=== PATIENT | male | born 1940 | race Hispanic/Latino ===

== ENCOUNTER 2021-12-10 18:02 | Observation (INO) | payer MEDICARE, OTHER ==
--- NOTE | 2021-12-10 18:43 | Emergency Department Report ---
ED General Adult HPI - General Chief complaint: Fall Stated complaint: CUT ON HEAD Time Seen by Provider: 12/10/21 18:42 Source: patient, family Mode of arrival: Ambulatory Limitations: No Limitations - History of Present Illness Initial comments: Patient presents with complaints of an episode of loss of consciousness that was witnessed. No witnesses present to give any collateral history. States he was walking in his living room when all of a sudden he found himself waking up from the ground. Denies bowel/urinary incontinence, tongue or lip biting. Also denies any dizziness, numbness, weakness, COLEMAN, CP, SOB, palpitations before or after the episode. Also denies any vomiting, diarrhea, hematochezia, bloody or black tarry stools, vaginal bleeding. Complaining of a cut to his R head. Severity scale (0 -10): 2 - Related Data Allergies Allergy/AdvReac Type Severity Reaction Status Date / Time No Known Allergies Allergy Verified 12/10/21 22:12 ED Review of Systems ROS: Stated complaint: CUT ON HEAD Other details as noted in HPI Comment: All other systems reviewed and negative Constitutional: denies: chills, fever ED Physical Exam - General Limitations: No Limitations General appearance: alert, in no apparent distress - Head Head exam: Present: normocephalic, other (subcutaneous hematoma with abrasion in R parietal scalp) - Eye Eye exam: Present: PERRL, EOMI - ENT ENT exam: Present: mucous membranes moist, other (airway patent) - Neck Neck exam: Present: other (painless full ROM; non tender; unable to clear with NEXUS criteria 2/2 possible distracting injury) - Respiratory Respiratory exam: Present: other (good air ent) - Cardiovascular Cardiovascular Exam: Present: regular rate. Absent: rubs, gallop - GI/Abdominal GI/Abdominal exam: Present: soft. Absent: distended, tenderness, guarding, rebound - Extremities Exam Extremities exam: Present: other (painless full ROM in all extremities without defomrity, edema, ecchymosis or tenderness; pelvis stable and non tender) - Back Exam Back exam: Present: other (no step offs). Absent: paraspinal tenderness, vertebral tenderness - Neurological Exam Neurological exam: Present: oriented X3, CN II-XII intact, other (GCS 15/15 ([id number])). Absent: motor sensory deficit - Skin Skin exam: Present: other (see head) ED Course Vital Signs 12/10/21 12/10/21 12/10/21 18:17 22:00 23:20 Temperature 97.8 F 97.9 F Pulse Rate 75 76 80 Respiratory 18 15 Rate Blood Pressure Blood Pressure 145/71 139/81 [Right] O2 Sat by Pulse 97 95 Oximetry 12/11/21 00:54 Temperature 97.8 F Pulse Rate 73 Respiratory 16 Rate Blood Pressure 125/84 Blood Pressure [Right] O2 Sat by Pulse 96 Oximetry ED Medical Decision Making - Lab Data Result diagrams: 12/10/21 22:23 12/10/21 22:23 Laboratory Tests 12/10/21 12/10/21 12/10/21 19:48 19:58 19:58 WBC 5.8 RBC 5.06 H Hgb 15.9 H Hct 46.1 H MCV 91 MCH 32 MCHC 35 H RDW 13.7 Plt Count 178 Sodium 139 Potassium 4.2 Chloride 102.4 Carbon Dioxide 23 Anion Gap 18 BUN 18 Creatinine 1.1 Estimated GFR > 60 BUN/Creatinine Ratio 16 Glucose 136 H Calcium 9.7 Total Bilirubin 0.30 AST 16 ALT 11 Alkaline Phosphatase 74 Troponin T < 0.010 Total Protein 6.8 Albumin 4.0 Albumin/Globulin Ratio 1.4 Urine Color Straw Urine Turbidity Clear Urine pH 5.0 Ur Specific [place] 1.005 Urine Protein <15 mg/dl Urine Glucose (UA) Neg Urine Ketones Neg Urine Blood Sm Urine Nitrite Neg Urine Bilirubin Neg Urine Urobilinogen < 2.0 Ur Leukocyte Esterase Neg Urine WBC (Auto) < 1.0 Urine RBC (Auto) 0.0 EKG: HR 66, SR, borderline PA, narrow QRS, no significant ST changes in contiguous leads CT head: no acute intracranial abnormalities CT C-spine: no fracture or subluxation CXR: no acute cardiopulmonary process Critical care attestation.: If time is entered above; I have spent that time in minutes in the direct care of this critically ill patient, excluding procedure time. ED Disposition Clinical Impression: Syncope, Scalp abrasion Disposition: ADMITTED INPATIENT Is pt being admited?: Yes Condition: Stable Time of Disposition: 21:00 (Patient was admitted to Dr. Snow. Sign out was given by me to the admitting physician)
[2021-12-10] MEDS ORDERED: TETANUS,DIPH,PERTUSS(ACELL) VACCINE 0.5 ML SYRINGE IM ONE (18:45)
--- NOTE | 2021-12-10 19:14 | XRay Report ---
CHEST 1 VIEW INDICATION: syncope. COMPARISON: Chest x-ray from 07/25/2012 FINDINGS: SUPPORT DEVICES: None. HEART: Within normal limits. LUNGS/PLEURA: No acute air space or interstitial disease. ADDITIONAL FINDINGS: None. IMPRESSION: 1. No acute findings. Signer Name: Isaiah Natarajan MD Signed: 12/10/2021 7:10 PM Workstation Name: [id number]
[2021-12-10 20:09] LABS: Bilirubin,Urine NEG (Negative); Blood,Urine SM (Negative); Color,Urine Straw (Yellow); Protein,Urine <15 mg/dL mg/dL (Negative); Urobilinogen,Urine < 2.0 mg/dL (<2.0); WBC,Urine < 1.0 /HPF (0.0-6.0)
--- NOTE | 2021-12-10 20:35 | Cat Scan Report ---
CT head/brain wo con INDICATION / CLINICAL INFORMATION: 81 years Male; blunt head trauma. TECHNIQUE: Routine CT head without contrast. All CT scans at this location are performed using CT dos e reduction for ALARA by means of automated exposure control. COMPARISON: None. FINDINGS: BRAIN / INTRACRANIAL CONTENTS: The motion degrades the image quality. However, there is moderate cere bral white matter disease most consistent with microvascular angiopathy. There is mild cerebral atrop hy with associated prominence of the ventricular system. There is small hematoma involving the lateral right frontal scalp. However, there is no clear CT evid ence of acute intracranial hemorrhage. ORBITS: No significant abnormality of visualized orbits. SINUSES / MASTOIDS: No significant abnormality in the visualized paranasal sinuses or mastoid air chago ls. CRANIOCERVICAL JUNCTION: No significant abnormality. ADDITIONAL FINDINGS: None. IMPRESSION: 1. The study some to by motion. However, there is a hematoma involving right lateral frontal scalp wi thout clear CT evidence of acute intracranial hemorrhage. 2. 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 Signer Name: Erik Mabry MD Signed: 12/10/2021 8:31 PM Workstation Name: [id number]
[2021-12-10 20:39] LABS: Hematocrit 46.1 % (35.5-45.6); Hemoglobin 15.9 gm/dl (11.8-15.2); Mean Corpuscular HGB Conc 35 % (32-34); Mean Corpuscular Volume 91 fl (84-94); Platelet Count 178 K/mm3 (140-440); Red Blood Count 5.06 M/mm3 (3.65-5.03); Red Cell Distribution Width 13.7 % (13.2-15.2)
--- NOTE | 2021-12-10 20:40 | Cat Scan Report ---
CT cervical spine wo con INDICATION / CLINICAL INFORMATION: 81 years Male; blunt head trauma. TECHNIQUE: Axial CT images of the cervical spine were obtained. Sagittal and coronal reformatted images were pr oduced. All CT scans at this location are performed using CT dose reduction for ALARA by means of aut omated exposure control. COMPARISON: None available. FINDINGS: POST-SURGICAL CHANGES: None. ALIGNMENT: There is mild reversal of the cervical lordosis without significant spondylolisthesis. VERTEBRAE: There is mild disc space narrowing and degenerative endplate changes at C5-6 and C6-7 and anteriorly at C3-4. There is no clear CT evidence of acute fracture of the cervical spine. There is a lucent lesion along the posterior C4 vertebral body measuring 0.6 cm in greatest transvers e dimension at. There is a finding is nonspecific and is noted posteriorly along the region of the ve nous plexus and is likely incidental finding. No further lytic lesions are appreciated at. INTRAVERTEBRAL DISCS: The left facet and uncovertebral joint hypertrophy at C3-4 result in marked lef t foraminal narrowing at. The spondylosis at C4-5 effaces the right lateral recess with moderate righ t foraminal narrowing. The spondylosis at C5-6 effaces the ventral subarachnoid space with moderate to marked left and moder ate right foraminal narrowing. The spondylosis C6-7 appears to mildly encroach on the ventral cord. There is marked foraminal narrow ing bilaterally. There is mild left foraminal narrowing at C7-T1. PARASPINAL SOFT TISSUES: No prevertebral soft tissue fluid collections are identified. ADDITIONAL FINDINGS: None. IMPRESSION: 1. There is no clear CT evidence of acute fracture involving cervical spine. 2. There are multilevel degenerative the changes as detailed above. Signer Name: Erik Mabry MD Signed: 12/10/2021 8:35 PM Workstation Name: [id number]
[2021-12-10 20:53] LABS: Alanine Aminotransferase 11 units/L (7-56); BUN/Creatinine Ratio 16; Blood Urea Nitrogen 18 mg/dL (9-20); Calcium 9.7 mg/dL (8.4-10.2); Hemolysis Index 13
[2021-12-10] MEDS ORDERED: ACETAMINOPHEN 325 MG TAB PO PRN (22:06)
[2021-12-10] MEDS ORDERED: NITROGLYCERIN 0.4 MG TAB SUBL SL PRN (22:06)
[2021-12-10] MEDS ORDERED: MORPHINE 4 MG/1 ML INJ IV PRN (22:06)
[2021-12-10] MEDS ORDERED: traMADol 50 MG TAB PO PRN (22:06)
--- NOTE | 2021-12-10 22:13 | History and Physical Report ---
History of Present Illness Date of examination: 12/10/21 Date of admission: 12/10/21 Chief complaint: Fall Syncope History of present illness: 81 years old male with history of hypertension was brought to the hospital because of an episode of loss of consciousness . No witnesses present to give any collateral history. States he was walking in his living room when all of a sudden he found himself waking up from the ground. Denies bowel/urinary incontinence, tongue or lip biting. Also denies any dizziness, numbness, weakness, COLEMAN, CP, SOB, palpitations before or after the episode. Also denies any vomiting, diarrhea, hematochezia, bloody or black tarry stools, vaginal bleeding. Complaining of a cut to his Rt side head which was sutured by the ER physician. In the emergency room initial CT scan of the head shows no acute intracranial abnormality. Initial troponin is 0.010.'s were going to admit the patient we will put the patient on IV fluid will consult cardiology for evaluation we will do serial enzymes and echocardiogram Past History Past Medical History: hypertension Past Surgical History: No surgical history Social history: no significant social history Family history: no significant family history Medications and Allergies Allergies Allergy/AdvReac Type Severity Reaction Status Date / Time No Known Allergies Allergy Unverified 12/10/21 18:13 Active Meds: Active Medications Acetaminophen (Acetaminophen 325 Mg Tab) 650 mg PO Q6H PRN PRN Reason: Pain, Mild (1-3) Aspirin (Aspirin Ec 325 Mg Tab) 325 mg PO QDAY CITLALY Atorvastatin Calcium (Atorvastatin 40 Mg Tab) 40 mg PO QHS [facility] Sodium Chloride (Nacl 0.9% 1000 Ml) 1,000 mls @ 100 mls/hr IV DIRECT CITLALY Morphine Sulfate (Morphine 4 Mg/1 Ml Inj) 2 mg IV Q5MIN PRN PRN Reason: Chest Pain unrelieved by NTG Nitroglycerin (Nitroglycerin 0.4 Mg Tab Subl) 0.4 mg SL Q5M PRN PRN Reason: Chest Pain Pantoprazole Sodium (Pantoprazole 40 Mg Tab) 40 mg PO QDAY CITLALY Sodium Chloride (Sodium Chloride 0.9% 10 Ml Flush Syringe) 10 ml IV PRN PRN PRN Reason: LINE FLUSH Tramadol HCl (Tramadol 50 Mg Tab) 50 mg PO Q6H PRN PRN Reason: Pain, Moderate (4-6) Review of Systems All systems: negative Constitutional: other (Fall, syncope, unconsciousness, caught on the head on the right side) Cardiovascular: syncope Exam - Constitutional Vitals: Temp Pulse Resp BP Pulse Ox 97.8 F 75 18 145/71 97 12/10/21 18:17 12/10/21 18:17 12/10/21 18:17 12/10/21 18:17 12/10/21 18:17 General appearance: Present: no acute distress, well-nourished - EENT Eyes: Present: PERRL ENT: hearing intact, clear oral mucosa - Neck Neck: Present: supple, normal ROM - Respiratory Respiratory effort: normal Respiratory: bilateral: diminished - Cardiovascular Heart Sounds: Present: S1 & S2. Absent: rub, click - Extremities Extremities: pulses symmetrical, No edema Peripheral Pulses: within normal limits - Abdominal General gastrointestinal: Present: soft, non-tender, non-distended, normal bowel sounds Male genitourinary: Present: normal - Integumentary Integumentary: Present: clear, warm, dry - Musculoskeletal Musculoskeletal: gait normal, strength equal bilaterally - Psychiatric Psychiatric: appropriate mood/affect, intact judgment & insight - Neurologic Neurologic: CNII-XII intact, moves all extremities HEART Score - HEART Score Troponin: Troponin T < 0.010 ng/mL (0.00-0.029) 12/10/21 19:58 Results - Labs CBC & Chem 7: 12/10/21 19:58 12/10/21 19:58 Labs: Laboratory Last Values WBC 5.8 K/mm3 (4.5-11.0) 12/10/21 19:58 RBC 5.06 M/mm3 (3.65-5.03) H 12/10/21 19:58 Hgb 15.9 gm/dl (11.8-15.2) H 12/10/21 19:58 Hct 46.1 % (35.5-45.6) H 12/10/21 19:58 MCV 91 fl (84-94) 12/10/21 19:58 MCH 32 pg (28-32) 12/10/21 19:58 MCHC 35 % (32-34) H 12/10/21 19:58 RDW 13.7 % (13.2-15.2) 12/10/21 19:58 Plt Count 178 K/mm3 (140-440) 12/10/21 19:58 Sodium 139 mmol/L (137-145) 12/10/21 19:58 Potassium 4.2 mmol/L (3.6-5.0) 12/10/21 19:58 Chloride 102.4 mmol/L (98-107) 12/10/21 19:58 Carbon Dioxide 23 mmol/L (22-30) 12/10/21 19:58 Anion Gap 18 mmol/L 12/10/21 19:58 BUN 18 mg/dL (9-20) 12/10/21 19:58 Creatinine 1.1 mg/dL (0.8-1.3) 12/10/21 19:58 Estimated GFR > 60 ml/min 12/10/21 19:58 BUN/Creatinine Ratio 16 % 12/10/21 19:58 Glucose 136 mg/dL (75-100) H 12/10/21 19:58 Calcium 9.7 mg/dL (8.4-10.2) 12/10/21 19:58 Total Bilirubin 0.30 mg/dL (0.1-1.2) 12/10/21 19:58 AST 16 units/L (5-40) 12/10/21 19:58 ALT 11 units/L (7-56) 12/10/21 19:58 Alkaline Phosphatase 74 units/L (35-129) 12/10/21 19:58 Troponin T < 0.010 ng/mL (0.00-0.029) 12/10/21 19:58 Total Protein 6.8 g/dL (6.3-8.2) 12/10/21 19:58 Albumin 4.0 g/dL (3.9-5) 12/10/21 19:58 Albumin/Globulin Ratio 1.4 % 12/10/21 19:58 Urine Color Straw (Yellow) 12/10/21 19:48 Urine Turbidity Clear (Clear) 12/10/21 19:48 Urine pH 5.0 (5.0-7.0) 12/10/21 19:48 Ur Specific [place] 1.005 (1.003-1.030) 12/10/21 19:48 Urine Protein <15 mg/dl mg/dL (Negative) 12/10/21 19:48 Urine Glucose (UA) Neg mg/dL (Negative) 12/10/21 19:48 Urine Ketones Neg mg/dL (Negative) 12/10/21 19:48 Urine Blood Sm (Negative) 12/10/21 19:48 Urine Nitrite Neg (Negative) 12/10/21 19:48 Urine Bilirubin Neg (Negative) 12/10/21 19:48 Urine Urobilinogen < 2.0 mg/dL (<2.0) 12/10/21 19:48 Ur Leukocyte Esterase Neg (Negative) 12/10/21 19:48 Urine WBC (Auto) < 1.0 /HPF (0.0-6.0) 12/10/21 19:48 Urine RBC (Auto) 0.0 /HPF (0.0-6.0) 12/10/21 19:48 - Imaging and Cardiology Chest x-ray: report reviewed CT Scan - head: report reviewed Assessment and Plan VTE prophylaxis?: Mechanical Plan of care discussed with patient/family: Yes - Patient Problems (1) Syncope Current Visit: Yes Status: Acute Plan to address problem: Admit the patient to the medical telemetry. Cardiac diet. IV fluid normal saline at the rate of 100 cc/h. Aspirin 325 mg p.o. daily. Lipitor 40 mg p.o. daily. Due to the serial cardiac enzymes. Patient is on fall precaution. Echocardiogram. Cardiology evaluation (2) Hypertension Current Visit: Yes Status: Acute Plan to address problem: Hydralazine 10 mg IV every 6 hours as needed. We will continue the home medication (3) Fall Current Visit: Yes Status: Acute Plan to address problem: Patient is on fall precaution. Will consult physical therapy evaluation (4) Laceration of head Current Visit: Yes Status: Acute Plan to address problem: Laceration is sutured by the ER physician. We cleaned the dressing. We will monitor the patient closely (5) DVT prophylaxis Current Visit: Yes Status: Acute Plan to address problem: SCD for DVT prophylaxis. Protonix 40 mg p.o. daily for GI prophylaxis. Patient is a full code
[2021-12-10] MEDS ORDERED: hydrALAZINE 20 MG/1 ML INJ IV PRN (22:14)
[2021-12-10] MEDS ORDERED: SODIUM CHLORIDE 0.9% 1000 ML 1,000 ML IV SCH (22:15)
[2021-12-10 23:15] LABS: Basophils % (Auto) 0.6 % (0.0-1.8); Eosinophils # (Auto) 0.1 K/mm3 (0.0-0.4); Eosinophils % (Auto) 1.3 % (0.0-4.3); Hematocrit 48.7 % (35.5-45.6); Hemoglobin 16.7 gm/dl (11.8-15.2); Lymphocytes # (Auto) 1.6 K/mm3 (1.2-5.4); Lymphocytes % (Auto) 23.9 % (13.4-35.0); Mean Corpuscular HGB Conc 34 % (32-34); Mean Corpuscular Volume 92 fl (84-94); Monocytes # (Auto) 0.7 K/mm3 (0.0-0.8); Monocytes % (Auto) 10.8 % (0.0-7.3); Platelet Count 197 K/mm3 (140-440); Red Cell Distribution Width 13.5 % (13.2-15.2)
[2021-12-10 23:26] LABS: BUN/Creatinine Ratio 15; Blood Urea Nitrogen 17 mg/dL (9-20); Calcium 9.5 mg/dL (8.4-10.2); Hemolysis Index 31
[2021-12-11 03:14] LABS: Anisocytosis 1+; Basophils % (Manual) 0 % (0.0-1.8); Platelet Estimate Consistent w Auto; Total Cells Counted 100
[2021-12-11] MEDS: PANTOPRAZOLE 40 MG TAB PO SCH (09:13)
[2021-12-11] MEDS ORDERED: ASPIRIN EC 325 MG TAB PO SCH (10:00)
--- NOTE | 2021-12-11 12:55 | Electrocardiograph Report ---
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
--- NOTE | 2021-12-11 13:05 | Electrocardiograph Report ---
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 Electronically Signed On 12-11-2021 13:04:25 EDT by Yousif Hernandez
--- NOTE | 2021-12-11 13:08 | Electrocardiograph Report ---
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 Electronically Signed On 12-11-2021 13:07:48 EDT by Yousif Hernandez
--- NOTE | 2021-12-11 21:59 | Progress Note ---
Assessment and Plan Assessment and plan: #Syncope Troponins negative x2 EKG revealing slightly prolonged DE interval but no ST changes or elevation TTE revealing EF 50-55% with normal size LV, normal LV systolic function, mild concentric LVH, mild diastolic dysfunction. Likely secondary to dehydration/hypovolemia versus vasovagal. Patient counseled on increasing fluid intake and taking breaks as needed. Patient expresses understanding. #Hypertension - home medications: None - current medications: Holding antihypertensives in the setting of possible etiology of syncope - SBP goal <160 and DBP goal <90 while inpatient - continue to monitor #Ground-level fall #Head laceration Unremarkable imaging in the ED. Laceration was sutured in the ED. #Advanced care planning -Disease education conducted, care plan discussed, diagnoses discussed, prognosis discussed, and patient acknowledges understanding with care plan -Time: +30 min #Discharge planning - Case management has been made aware. - Discharge is tentatively tomorrow morning Disposition Plan: Pending discharge tomorrow Total Time Spent with Patient (Minutes): 45 min History Interval history: No acute events overnight. Hospitalist Physical - Constitutional Vitals: Temp Pulse Resp BP Pulse Ox 97.7 F 69 16 151/76 96 12/11/21 19:29 12/11/21 20:16 12/11/21 19:29 12/11/21 19:29 12/11/21 20:18 General appearance: Present: no acute distress, well-nourished, other (Closed laceration on right side of scalp) - EENT Eyes: Present: PERRL, EOM intact ENT: hearing intact, clear oral mucosa, dentition normal, hearing decreased - Neck Neck: Present: supple, normal ROM - Respiratory Respiratory effort: normal Respiratory: bilateral: CTA - Cardiovascular Rhythm: regular Heart Sounds: Present: S1 & S2 - Extremities Extremities: no ischemia, pulses intact, pulses symmetrical, No edema, normal temperature, normal color, Full ROM Peripheral Pulses: within normal limits - Abdominal General gastrointestinal: soft, non-tender, non-distended, normal bowel sounds - Integumentary Integumentary: Present: clear, warm, dry - Psychiatric Psychiatric: appropriate mood/affect, intact judgment & insight, memory intact, cooperative - Neurologic Neurologic: CNII-XII intact, moves all extremities - Allied Health Allied health notes reviewed: nursing HEART Score - HEART Score Troponin: Troponin T < 0.010 ng/mL (0.00-0.029) 12/11/21 06:40 Results - Labs CBC & Chem 7: 12/10/21 22:23 12/10/21 22:23 Labs: Laboratory Last Values WBC 6.7 K/mm3 (4.5-11.0) 12/10/21 22:23 RBC 5.30 M/mm3 (3.65-5.03) H 12/10/21 22:23 Hgb 16.7 gm/dl (11.8-15.2) H 12/10/21 22:23 Hct 48.7 % (35.5-45.6) H 12/10/21 22:23 MCV 92 fl (84-94) 12/10/21 22: MCH 32 pg (28-32) 12/10/21 22: MCHC 34 % (32-34) 12/10/21 22: RDW 13.5 % (13.2-15.2) 12/10/21 22: Plt Count 197 K/mm3 (140-440) 12/10/21 22:23 Lymph % (Auto) 23.9 % (13.4-35.0) 12/10/21 22: [place] % (Auto) 10.8 % (0.0-7.3) H 12/10/21 22: Eos % (Auto) 1.3 % (0.0-4.3) 12/10/21 22: Baso % (Auto) 0.6 % (0.0-1.8) 12/10/21: Lymph # (Auto) 1.6 K/mm3 (1.2-5.4) 12/10/21 22: [place] # (Auto) 0.7 K/mm3 (0.0-0.8) 12/10/21 22: Eos # (Auto) 0.1 K/mm3 (0.0-0.4) 12/10/21 22: Baso # (Auto) 0.0 K/mm3 (0.0-0.1) 12/10/21 22: Add Manual Diff Complete 12/10/21 19:58 Total Counted 100 12/10/21 19:58 Seg Neutrophils % 63.4 % (40.0-70.0) 12/10/21 22:23 Seg Neuts % (Manual) 63.0 % (40.0-70.0) 12/10/21 19:58 Band Neutrophils % 0 % 12/10/21 19:58 Lymphocytes % (Manual) 24.0 % (13.4-35.0) 12/10/21 19:58 Reactive Lymphs % (Man) 0 % 12/10/21 19:58 Monocytes % (Manual) 8.0 % (0.0-7.3) H 12/10/21 19:58 Eosinophils % (Manual) 5.0 % (0.0-4.3) H 12/10/21 19:58 Basophils % (Manual) 0 % (0.0-1.8) 12/10/21 19:58 Metamyelocytes % 0 % 12/10/21 19:58 Myelocytes % 0 % 12/10/21 19:58 Promyelocytes % 0 % 12/10/21 19:58 Blast Cells % 0 % 12/10/21 19:58 Nucleated RBC % Not Reportable 12/10/21 19:58 Seg Neutrophils # 4.2 K/mm3 (1.8-7.7) 12/10/21 22:23 Seg Neutrophils # Man 3.7 K/mm3 (1.8-7.7) 12/10/21 19:58 Band Neutrophils # 0.0 K/mm3 12/10/21 19:58 Lymphocytes # (Manual) 1.4 K/mm3 (1.2-5.4) 12/10/21 19:58 Abs React Lymphs (Man) 0.0 K/mm3 12/10/21 19:58 Monocytes # (Manual) 0.5 K/mm3 (0.0-0.8) 12/10/21 19:58 Eosinophils # (Manual) 0.3 K/mm3 (0.0-0.4) 12/10/21 19:58 Basophils # (Manual) 0.0 K/mm3 (0.0-0.1) 12/10/21 19:58 Metamyelocytes # 0.0 K/mm3 12/10/21 19:58 Myelocytes # 0.0 K/mm3 12/10/21 19:58 Promyelocytes # 0.0 K/mm3 12/10/21 19:58 Blast Cells # 0.0 K/mm3 12/10/21 19:58 WBC Morphology Not Reportable 12/10/21 19:58 Hypersegmented Neuts Not Reportable 12/10/21 19:58 Hyposegmented Neuts Not Reportable 12/10/21 19:58 Hypogranular Neuts Not Reportable 12/10/21 19:58 Smudge Cells Not Reportable 12/10/21 19:58 Toxic Granulation Not Reportable 12/10/21 19:58 Toxic Vacuolation Not Reportable 12/10/21 19:58 Dohle Bodies Not Reportable 12/10/21 19:58 Pelger-Huet Anomaly Not Reportable 12/10/21 19:58 Curly Rods Not Reportable 12/10/21 19:58 Platelet Estimate Consistent w auto 12/10/21 19:58 Clumped Platelets Not Reportable 12/10/21 19:58 Plt Clumps, EDTA Not Reportable 12/10/21 19:58 Large Platelets Not Reportable 12/10/21 19:58 Giant Platelets Not Reportable 12/10/21 19:58 Platelet Satelliting Not Reportable 12/10/21 19:58 Plt Morphology Comment Not Reportable 12/10/21 19:58 RBC Morphology Not Reportable 12/10/21 19:58 Dimorphic RBCs Not Reportable 12/10/21 19:58 Polychromasia Not Reportable 12/10/21 19:58 Hypochromasia Not Reportable 12/10/21 19:58 Poikilocytosis Not Reportable 12/10/21 19:58 Anisocytosis 1+ 12/10/21 19:58 Microcytosis Not Reportable 12/10/21 19:58 Macrocytosis Not Reportable 12/10/21 19:58 Spherocytes Not Reportable 12/10/21 19:58 Pappenheimer Bodies Not Reportable 12/10/21 19:58 Sickle Cells Not Reportable 12/10/21 19:58 Target Cells Not Reportable 12/10/21 19:58 Tear Drop Cells Not Reportable 12/10/21 19:58 Ovalocytes Not Reportable 12/10/21 19:58 Helmet Cells Not Reportable 12/10/21 19:58 Julian-Joshua Bodies Not Reportable 12/10/21 19:58 [place] Rings Not Reportable 12/10/21 19:58 [place] Cells Not Reportable 12/10/21 19:58 Bite Cells Not Reportable 12/10/21 19:58 Crenated Cell Not Reportable 12/10/21 19:58 Elliptocytes Not Reportable 12/10/21 19:58 Acanthocytes (Spur) Not Reportable 12/10/21 19:58 Rouleaux Not Reportable 12/10/21 19:58 Hemoglobin C Crystals Not Reportable 12/10/21 19:58 Schistocytes Not Reportable 12/10/21 19:58 Malaria parasites Not Reportable 12/10/21 19:58 Daniel Bodies Not Reportable 12/10/21 19:58 Hem Pathologist Commnt No 12/10/21 19:58 Sodium 140 mmol/L (137-145) 12/10/21 22:23 Potassium 4.4 mmol/L (3.6-5.0) 12/10/21 22:23 Chloride 103.6 mmol/L (98-107) 12/10/21 22:23 Carbon Dioxide 23 mmol/L (22-30) 12/10/21 22:23 Anion Gap 18 mmol/L 12/10/21 22:23 BUN 17 mg/dL (9-20) 12/10/21 22:23 Creatinine 1.1 mg/dL (0.8-1.3) 12/10/21 22:23 Estimated GFR > 60 ml/min 12/10/21 22:23 BUN/Creatinine Ratio 15 % 12/10/21 22:23 Glucose 148 mg/dL (75-100) H 12/10/21 22:23 Calcium 9.5 mg/dL (8.4-10.2) 12/10/21 22:23 Total Bilirubin 0.30 mg/dL (0.1-1.2) 12/10/21 19:58 AST 16 units/L (5-40) 12/10/21 19:58 ALT 11 units/L (7-56) 12/10/21 19:58 Alkaline Phosphatase 74 units/L (35-129) 12/10/21 19:58 Troponin T < 0.010 ng/mL (0.00-0.029) 12/11/21 06:40 Total Protein 6.8 g/dL (6.3-8.2) 12/10/21 19:58 Albumin 4.0 g/dL (3.9-5) 12/10/21 19:58 Albumin/Globulin Ratio 1.4 % 12/10/21 19:58 Urine Color Straw (Yellow) 12/10/21 19:48 Urine Turbidity Clear (Clear) 12/10/21 19:48 Urine pH 5.0 (5.0-7.0) 12/10/21 19:48 Ur Specific [place] 1.005 (1.003-1.030) 12/10/21 19:48 Urine Protein <15 mg/dl mg/dL (Negative) 12/10/21 19:48 Urine Glucose (UA) Neg mg/dL (Negative) 12/10/21 19:48 Urine Ketones Neg mg/dL (Negative) 12/10/21 19:48 Urine Blood Sm (Negative) 12/10/21 19:48 Urine Nitrite Neg (Negative) 12/10/21 19:48 Urine Bilirubin Neg (Negative) 12/10/21 19:48 Urine Urobilinogen < 2.0 mg/dL (<2.0) 12/10/21 19:48 Ur Leukocyte Esterase Neg (Negative) 12/10/21 19:48 Urine WBC (Auto) < 1.0 /HPF (0.0-6.0) 12/10/21 19:48 Urine RBC (Auto) 0.0 /HPF (0.0-6.0) 12/10/21 19:48 Tran/IV: Voiding Method Urinal Active Medications - Current Medications Current Medications: Generic Name Dose Route Start Last Admin Trade Name Freq PRN Reason Stop Dose Admin Acetaminophen 650 mg 12/10/21 22:06 Acetaminophen 325 Mg Tab PO Q6H PRN Pain, Mild (1-3) Atorvastatin Calcium 40 mg 12/11/21 22:00 Atorvastatin 40 Mg Tab PO QHS [facility] Hydralazine HCl 10 mg 12/10/21 22:14 Hydralazine 20 Mg/1 Ml Inj IV Q6H PRN Blood Pressure Morphine Sulfate 2 mg 12/10/21 22:06 Morphine 4 Mg/1 Ml Inj IV Q5MIN PRN Chest Pain unrelieved by NTG Nitroglycerin 0.4 mg 12/10/21 22:06 Nitroglycerin 0.4 Mg Tab Subl SL Q5M PRN Chest Pain Pantoprazole Sodium 40 mg 12/11/21 10:00 12/11/21 09:13 Pantoprazole 40 Mg Tab PO 40 mg QDAY CITLALY Administration Sodium Chloride 10 ml 12/10/21 22:06 Sodium Chloride 0.9% 10 Ml Flush Syringe IV PRN PRN LINE FLUSH Tramadol HCl 50 mg 12/10/21 22:06 Tramadol 50 Mg Tab PO Q6H PRN Pain, Moderate (4-6)
[2021-12-12 04:41] VITALS: BP 132/75
--- NOTE | 2021-12-12 08:08 | Discharge Summary ---
Providers - Providers Date of Admission: 12/10/21 22:06 Date of discharge: 12/12/21 Attending physician: YEYO CARR MD 12/10/21 Consult to Cardiac Rehabilitation [CONS] Routine Reason For Exam: Phase I 12/10/21 22:06 Consult to Cardiology [CONS] Routine Consulting Provider: STARR GEE Reason For Exam: Syncope Primary care physician: ERCIA LASSITER Hospitalization Reason for admission: Syncope Condition: Stable Pertinent studies: Reviewed. Procedures: None. Hospital course: Patient is a 81-year-old female past medical history of hypertension and [id number] type 2 diabetes mellitus who presented to the hospital after an episode of unconsciousness/syncope that was unwitnessed. Patient states he was walking in the living room, and then he all of a sudden found himself waking up on the ground. Patient denies any dizziness, numbness, weakness, headache, chest pain, shortness of breath, palpitations, nausea, vomiting, diarrhea, hematochezia, melena, or any trauma. The patient endorses multiple episodes of syncope where he experiences lightheadedness prior to the episode. The patient has been discontinued from his HUMERA inhibitor by his primary care provider. Seconds after his syncopal episodes, the patient is conscious and fully aware of his surroundings without any confusion. Patient underwent EKG that revealed sinus rhythm with a prolonged WA interval. Patient underwent TTE revealing EF 50-55% with normal size LV, normal LV systolic function, mild concentric LVH, mild diastolic dysfunction. Patient is currently hemodynamically stable. Patient has been counseled on the importance of incre asing fluid intake due to his syncopal episodes likely being secondary to hypovolemia versus vasovagal. The patient expresses understanding. The patient also endorses being evaluated by 2 neurologists prior to his presentation for the same symptom, and he was informed that there was no neurological etiology. Patient is medically clear for discharge. Patient will follow up with his PCP. Disposition: 01 HOME / SELF CARE / HOMELESS Final Discharge Diagnosis (Prints w/discharge instructions): Hypertension, [id number] type 2 diabetes mellitus. Time spent for discharge: 45 minutes Core Measure Documentation - Palliative Care Palliative Care/ Comfort Measures: Not Applicable - Core Measures Any of the following diagnoses?: none Exam - Constitutional Vitals: Temp Pulse Resp BP Pulse Ox 98.0 F 71 16 132/75 96 12/12/21 04:24 12/12/21 04:24 12/12/21 04:24 12/12/21 04:24 12/12/21 04:24 General appearance: Present: no acute distress, well-nourished - EENT Eyes: Present: PERRL, EOM intact ENT: hearing intact, clear oral mucosa, dentition normal, hearing decreased - Neck Neck: Present: supple, normal ROM - Respiratory Respiratory effort: normal - Cardiovascular Rhythm: regular Heart Sounds: Present: S1 & S2 - Extremities Extremities: no ischemia, pulses intact, pulses symmetrical, No edema, normal temperature, normal color Peripheral Pulses: within normal limits - Abdominal General gastrointestinal: Present: soft, non-tender, non-distended, normal bowel sounds Male genitourinary: Present: deferred - Rectal Rectal Exam: deferred - Integumentary Integumentary: Present: clear, warm, dry - Musculoskeletal Musculoskeletal: strength equal bilaterally - Psychiatric Psychiatric: appropriate mood/affect, intact judgment & insight, memory intact, cooperative - Neurologic Neurologic: CNII-XII intact, moves all extremities - Allied Health Allied health notes reviewed: nursing Plan Activity: advance as tolerated Diet: diabetic Special Instructions: other (Increase daily fluid intake) Additional Instructions: Patient is a 81-year-old female past medical history of hypertension and [id number] type 2 diabetes mellitus who presented to the hospital after an episode of unconsciousness/syncope that was unwitnessed. Patient states he was walking in the living room, and then he all of a sudden found himself waking up on the ground. Patient denies any dizziness, numbness, weakness, headache, chest pain, shortness of breath, palpitations, nausea, vomiting, diarrhea, hematochezia, melena, or any trauma. The patient endorses multiple episodes of syncope where he experiences lighthea dedness prior to the episode. The patient has been discontinued from his HUMERA inhibitor by his primary care provider. Seconds after his syncopal episodes, the patient is conscious and fully aware of his surroundings without any confusion. Patient underwent EKG that revealed sinus rhythm with a prolonged WA interval. Patient underwent TTE revealing EF 50-55% with normal size LV, normal LV systolic function, mild concentric LVH, mild diastolic dysfunction. Patient is currently hemodynamically stable. Patient has been counseled on the importance of increasing fluid intake due to his syncopal episodes likely being secondary to hypovolemia versus vasovagal. The patient expresses understanding. The patient also endorses being evaluated by 2 neurologists prior to his presentation for the same symptom, and he was informed that there was no neurological etiology. Patient is medically clear for discharge. Patient will follow up with his PCP. Assessment: Patient is a 81-year-old female past medical history of hypertension and [id number]-[id number] type 2 diabetes mellitus who presented to the hospital after an episode of unconsciousness/syncope that was unwitnessed. Patient states he was walking in the living room, and then he all of a sudden found himself waking up on the ground. Patient denies any dizziness, numbness, weakness, headache, chest pain, shortness of breath, palpitations, nausea, vomiting, diarrhea, hematochezia, melena, or any trauma. The patient endorses multiple episodes of syncope where he experiences lightheadedness prior to the e pisode. The patient has been discontinued from his HUMERA inhibitor by his primary care provider. Seconds after his syncopal episodes, the patient is conscious and fully aware of his surroundings without any confusion. Patient underwent EKG that revealed sinus rhythm with a prolonged WA interval. Patient underwent TTE revealing EF 50-55% with normal size LV, normal LV systolic function, mild concentric LVH, mild diastolic dysfunction. Patient is currently hemodynamically stable. Patient has been counseled on the importance of increasing fluid intake due to his syncopal episodes likely being secondary to hypovolemia versus vasovagal. The patient expresses understanding. The patient also endorses being evaluated by 2 neurologists prior to his presentation for the same symptom, and he was informed that there was no neurological etiology. Patient is medically clear for discharge. Patient will follow up with his PCP. Follow up with: ERICA LASSITER MD [Primary Care Provider] - 3-5 Days
[2021-12-12] MEDS: PANTOPRAZOLE 40 MG TAB PO SCH (09:28)
== END 2021-12-12 12:06 | disposition home or self-care (01) ==
LOC: ED 18:02 → 4A 22:06 → INTOOBSV 22:06 → 4A 23:07
PROVIDERS: ADMIT Hospitalist; ATTEND Student in an Organized Health Care Education/Training Program
DX: S01.91XA Laceration without foreign body of unspecified part of head, initial encounter (principal); I10 Essential (primary) hypertension; E11.9 Type 2 diabetes mellitus without complications; R55 Syncope and collapse; Z79.82 Long term (current) use of aspirin; Z79.899 Other long term (current) drug therapy; Z98.890 Other specified postprocedural states; Z23 Encounter for immunization; Z71.85 Encounter for immunization safety counseling; W19.XXXA Unspecified fall, initial encounter; Y92.89 Other specified places as the place of occurrence of the external cause; Y93.89 Activity, other specified; Y99.8 Other external cause status
CPT/HCPCS: 12011; 36415; 70450; 71045; 72125; 80053; 81001; 84484; 85025; 90715; 93005; 96360; 96361; 99285; C8929; G0008; G0378; J7030; 80048; 85007; 90471; 93306